=== PATIENT | female | born 1950 | race Caucasian/White ===

== ENCOUNTER 2019-08-28 09:34 | Inpatient (IN) | payer OTHER ==
[2019-08-25 11:30] VITALS: BP_SYST 135
[2019-08-25 11:31] VITALS: BP 135/64
[2019-08-25 11:50] LABS: BASOPHILS % (AUTO) 0.2 % (0.0-5.0); EOSINOPHILS % (AUTO) 0.4 % (0.0-8.0); HEMATOCRIT 39.8 % (36-48); LYMPHOCYTES % (AUTO) 15.2 % (21.0-51.0); MEAN CORPUSCULAR HEMOGLOBIN 29.3 pg (27.0-33.0); MEAN CORPUSCULAR HGB CONC 33.2 g/dL (32.0-36.0); MEAN CORPUSCULAR VOLUME 88.2 fL (79-99); MONOCYTES % (AUTO) 3.2 % (3.0-13.0); PLATELET COUNT (AUTO) 319 K/uL (130-400); RED BLOOD CELL COUNT(AUTO) 4.52 MIL/uL (4.00-5.50); RED CELL DISTRIBUTION WIDTH 13.2 % (11.0-15.5); WHITE BLOOD COUNT (AUTO) 8.8 K/uL (4.8-10.8)
[2019-08-25 11:58] LABS: APPEARANCE,URINE Clear (CLEAR); BILIRUBIN,URINE Negative (NEGATIVE); COLOR,URINE Yellow (YELLOW); GLUCOSE, URINE (UA) Negative (NEGATIVE); KETONES,URINE Negative (NEGATIVE); LEUKOCYTE ESTERASE ,URINE Negative (NEGATIVE); NITRATE,URINE Negative (NEGATIVE); OCCULT BLOOD,URINE Negative (NEGATIVE); PROTEIN,URINE Negative (NEGATIVE); UROBILINOGEN,URINE 0.2 mg/dL (0.2-1.0)
[2019-08-25 12:04] LABS: CREATININE 0.8 mg/dL (0.5-1.5); POTASSIUM 4.2 mmol/L (3.5-5.1)
[2019-08-25 12:26] LABS: INR 0.94 (0.85-1.15); PROTHROMBIN TIME 9.9 SEC (9.6-11.6)
--- NOTE | 2019-08-25 16:36 | NUR ---
EKG ABNORMAL EKG REPORTED TO DR. BOJORQUEZ,NO FURTHER ORDERS GIVEN. OK TO PROCEED WITH SX
[2019-08-28] VITALS (18 sets, daily range): BP systolic 93–138; BP diastolic 44–67
[~2019-08-28] VITALS: Ht 160 cm; Wt 66.0 kg
[~2019-08-28 09:34] MED LIST: ALBU8.5H8 IH; ALBUTEROL NEBULIZER NEB; CLINDAMYCIN 900 MG/D5% WATER 50 ML IV SCH; CLON2TAB11 PO; ESCI10TA54 PO; ESOM40CA54 PO; EZET10TA48 PO; FLUT8AER2 IH; IVER30CR TP; LORA10TA7 PO; LOSA50TA64 PO; METF-444 PO; MONT10TA21 PO; MUPI22O TP; THYR60TA2 PO; [UNRECOGNIZED DRUG - CODE] TP
[2019-08-28] MEDS ORDERED: LACTATED RINGERS 1000ML 0 ML IV ONE (11:17)
[2019-08-28] MEDS ORDERED: SODIUM CHLORIDE 0.9% 1000ML 1,000 ML IV ONE (11:21)
--- NOTE | 2019-08-28 11:51 | NUR ---
PUPIL OCCURRENCE / REACTION: LEFT EYE DOES NOT DILATE. PATIENT STATED WAS MESSED UP DURING CATARACT SURGERY.
[2019-08-28] MEDS ORDERED: METOCLOPRAMIDE 10 MG/2 ML VIAL ONE (12:47)
[2019-08-28] MEDS ORDERED: KETOROLAC TROMETHAMINE 15MG/ML ONE (12:47)
[2019-08-28] MEDS ORDERED: CELECOXIB 200 MG CAP ONE (12:47)
[2019-08-28] MEDS ORDERED: ACETAMINOPHEN EXTRA STRENGTH 500 MG TABLET ONE (12:47)
[2019-08-28] MEDS ORDERED: OXYCODONE HCL 10 MG TAB.SR.12H PO ONE (12:48)
[2019-08-28] MEDS ORDERED: ALBUTEROL SULFATE 0.083% 2.5 MG/3 ML INH IH ONE (13:25)
[2019-08-28] MEDS ORDERED: CLINDAMYCIN PHOSPHATE 150 MG/ML 6ML VIAL ONE (16:14)
[2019-08-28] MEDS ORDERED: DiphenhydrAMINE HCL 50 MG/ML VIAL IVP PRN (16:45)
[2019-08-28] MEDS ORDERED: TRAMADOL HCL 50 MG TABLET PO PRN (16:45)
[2019-08-28] MEDS ORDERED: ONDANSETRON HCL 4 MG/2 ML VIAL IVP PRN (16:45)
--- NOTE | 2019-08-28 17:16 | NUR ---
TRANEXAMIC ACID 1GM IVPB GIVEN IN PACU. Addendum: 08/28/19 at 1720 by GENOVEVA WATERMAN RN RN Amended: Links added.
[2019-08-28] MEDS: SODIUM CHLORIDE 0.9% 1000ML 1,000 ML IV SCH (18:31)
[2019-08-28] MEDS: ACETAMINOPHEN EXTRA STRENGTH 500 MG TABLET PO SCH (18:33)
[2019-08-28] MEDS ORDERED: ALBUTEROL SULFATE 0.083% 2.5 MG/3 ML INH IH PRN ×2 (19:15→19:45)
[2019-08-28] MEDS ORDERED: ALBUTEROL NEBULIZER NEB PRN (19:15)
[2019-08-28] MEDS: BUDESONIDE 0.5 MG/2 ML INH IH SCH (19:44)
[2019-08-28] MEDS: OXYCODONE HCL 5 MG TAB PO PRN (20:08)
[2019-08-28] MEDS: METFORMIN HCL 500 MG TABLET PO SCH (20:08)
[2019-08-28] MEDS: CALCIUM CARBONATE 500 MG TABLET PO SCH (20:08)
[2019-08-28] MEDS: CELECOXIB 200 MG CAP PO SCH (20:08)
[2019-08-28] MEDS: CLONAZEPAM 2 MG TABLET PO SCH (20:09)
[2019-08-28] MEDS: PREGABALIN 25 MG CAP PO SCH (20:09)
[2019-08-28] MEDS: FAMOTIDINE 20MG TAB 20 MG TAB PO SCH (20:09)
[2019-08-28] MEDS: INSULIN HUMULIN R 100 UNIT/ML 3ML SQ SCH (21:00)
[2019-08-28] MEDS ORDERED: ASPIRIN 81MG TAB.CHEW PO SCH (21:00)
[2019-08-28] MEDS: PANTOPRAZOLE SODIUM 40 MG TABLET.DR PO SCH ×2 (21:00→22:57)
[2019-08-28] MEDS: CITALOPRAM 20 MG TABLET PO SCH ×2 (21:00→22:57)
[2019-08-28] MEDS: MUPIROCIN OINTMENT 22 GM TUBE TP SCH (21:00)
[2019-08-28] MEDS: CLINDAMYCIN 900 MG/D5% WATER 50 ML IV SCH (22:56)
[2019-08-29 00:12] VITALS: BP 100/56
[2019-08-29] MEDS: OXYCODONE HCL 5 MG TAB PO PRN ×6 (00:54→20:39)
[2019-08-29] MEDS: ACETAMINOPHEN EXTRA STRENGTH 500 MG TABLET PO SCH ×3 (00:55→18:16)
[2019-08-29] MEDS: SODIUM CHLORIDE 0.9% 1000ML 1,000 ML IV SCH ×2 (03:07→12:32)
[2019-08-29 04:12] VITALS: BP 99/53
--- NOTE | 2019-08-29 04:57 | NUR ---
NO VOID PATIENT UNABLE TO VOID ON HER OWN AND HAS SENSATION THAT SHE NEEDS TO GO. PATIENT WAS THEN BLADDER SCANNED TO SHOW 602ML OF FLUID IN HER BLADDER. PER PROTOCOL PATIENT WAS CATHETERIZED WITH A 16 FR CATHETER AND REMOVED 700 ML OF CLEAR YELLOW URINE.
[2019-08-29] MEDS: CLINDAMYCIN 900 MG/D5% WATER 50 ML IV SCH (05:11)
[2019-08-29] MEDS: INSULIN HUMULIN R 100 UNIT/ML 3ML SQ SCH ×4 (05:30→20:46)
[2019-08-29] MEDS: BUDESONIDE 0.5 MG/2 ML INH IH SCH ×2 (06:21→19:23)
[2019-08-29] MEDS: ALBUTEROL SULFATE 0.083% 2.5 MG/3 ML INH IH SCH ×4 (06:21→23:21)
[2019-08-29 07:52] VITALS: BP 102/53
[2019-08-29] MEDS ORDERED: ASPIRIN 325 MG TABLET PO SCH (08:30)
[2019-08-29] MEDS ORDERED: ASPIRIN 325MG EC TAB 325 MG TABLET.DR PO SCH (08:45)
[2019-08-29] MEDS: CLONAZEPAM 2 MG TABLET PO SCH ×2 (09:00→20:29)
[2019-08-29] MEDS: MUPIROCIN OINTMENT 22 GM TUBE TP SCH ×2 (09:00→20:46)
[2019-08-29] MEDS ORDERED: EZETIMIBE 10 MG TAB PO SCH (09:00)
[2019-08-29] MEDS: LOSARTAN 50 MG TABLET PO SCH (09:00)
[2019-08-29] MEDS: IVERMECTIN TP SCH (09:00)
[2019-08-29] MEDS: FAMOTIDINE 20MG TAB 20 MG TAB PO SCH ×2 (09:06→20:29)
[2019-08-29] MEDS: CELECOXIB 200 MG CAP PO SCH ×2 (09:06→20:29)
[2019-08-29] MEDS: EZETIMIBE 10 MG TAB PO SCH (09:07)
[2019-08-29] MEDS: POLYETHYLENE GLYCOL 3350 17 GM POWD.PACK PO SCH (09:07)
[2019-08-29] MEDS: MONTELUKAST SODIUM 10 MG TAB PO SCH (09:07)
[2019-08-29] MEDS: CALCIUM CARBONATE 500 MG TABLET PO SCH ×2 (09:07→20:28)
[2019-08-29] MEDS: PREGABALIN 25 MG CAP PO SCH ×2 (09:07→20:29)
[2019-08-29] MEDS: LORATADINE 10 MG TABLET PO SCH (09:07)
--- NOTE | 2019-08-29 09:32 | NUR ---
DR. SOSA AWARE OF CT OF THE HEAD RESUTLS "NORMAL STUDY"
--- NOTE | 2019-08-29 10:00 | NUR ---
PT VOIDED 4OO CC
[2019-08-29] MEDS: THYROID PORK 60 MG PO SCH (10:10)
--- NOTE | 2019-08-29 11:00 | NUR ---
DR. SOSA AWARE OF DR. MORRIS'S ORDERS OK TO FOLLOW RECOMMENDATIONS OK FOR ASPIRIN 325 MG PO BID
[2019-08-29 11:24] VITALS: BP 105/49
[2019-08-29] MEDS: KETOROLAC TROMETHAMINE 15MG/ML IV PRN ×2 (15:22→23:51)
[2019-08-29 16:11] VITALS: BP 130/61
--- NOTE | 2019-08-29 17:55 | NUR ---
ADVISED RN THAT PT IS ACCEPTED AT [facility], [facility] STILL STILL PENDING Addendum: 08/29/19 at 1756 by RAUL DE LA VEGA RN CM Amended: Links added.
[2019-08-29 20:09] VITALS: BP 148/62
[2019-08-29] MEDS: METFORMIN HCL 500 MG TABLET PO SCH (20:29)
[2019-08-29] MEDS: ASPIRIN 325MG EC TAB 325 MG TABLET.DR PO SCH (20:29)
[2019-08-29] MEDS: PANTOPRAZOLE SODIUM 40 MG TABLET.DR PO SCH (20:29)
[2019-08-29] MEDS: CITALOPRAM 20 MG TABLET PO SCH (20:29)
[2019-08-30] VITALS (7 sets, daily range): BP systolic 109–160; BP diastolic 50–82
[2019-08-30] MEDS: ACETAMINOPHEN EXTRA STRENGTH 500 MG TABLET PO SCH ×3 (00:45→16:45)
[2019-08-30] MEDS: OXYCODONE HCL 5 MG TAB PO PRN ×2 (01:00→08:08)
[2019-08-30] MEDS: INSULIN HUMULIN R 100 UNIT/ML 3ML SQ SCH ×4 (05:34→20:39)
[2019-08-30] MEDS: THYROID PORK 60 MG PO SCH (05:34)
[2019-08-30] MEDS: ALBUTEROL SULFATE 0.083% 2.5 MG/3 ML INH IH SCH ×4 (06:17→23:08)
[2019-08-30] MEDS: BUDESONIDE 0.5 MG/2 ML INH IH SCH ×2 (06:28→19:16)
--- NOTE | 2019-08-30 07:30 | NUR ---
INITIAL ASSESSMENT I QUESTIONED PATIENT IF NUMBNESS TO HANDS AND BLURRY VISION SYMPTOMS THAT WERE REPORTED YESTERDAY STILL PRESENT TODAY. PATIENT REPLIED "THE NUMB FEELING ON MY HANDS IS GOING AWAY AND I DON'T SEE BLURRY ANY MORE. I CAN SEE THE NUMBERS ON THE CLOCK TODAY. YESTERDAY I COULDN'T SEE THE NUMBERS ON THE CLOCK." I ASKED PATIENT "DO YOU FEEL LIKE YOUR SYMPTOMS ARE BETTER, WORSE, OR THE SAME SINCE THOSE SYMPTOMS STARTED YESTERDAY?" AND PATIENT REPLIED "I LIKE THEY [SYMPTOMS] ARE GETTING BETTER TODAY."
--- NOTE | 2019-08-30 08:15 | NUR ---
DR. IAN GARDNER HERE TO SEE PATIENT. MD ASKED ME TO ONLY LOOSEN PATIENTS PEYMAN WRAP ON RIGHT KNEE. I WENT TO PATIENTS ROOM AND EXPLAINED THAT I WAS GOING TO LOOSEN PEYMAN WRAP PER DR. SOSA REQUEST. AFTER I LOOSENED PEYMAN WRAP AND SECURED AGAIN, I ASKED PATIENT IF THE PEYMAN WRAP FELT LOOSER AND MORE COMFORTABLE AND PATIENT REPLIED "YES." I REAPPLIED SCD'S AFTER.
[2019-08-30] MEDS ORDERED: HYDROMORPHONE PCA 10 MG/50 ML 50 ML IV PRN (09:00)
[2019-08-30] MEDS: MUPIROCIN OINTMENT 22 GM TUBE TP SCH ×2 (09:00→20:34)
[2019-08-30] MEDS: LOSARTAN 50 MG TABLET PO SCH (09:00)
[2019-08-30] MEDS: CLONAZEPAM 2 MG TABLET PO SCH ×2 (09:00→20:34)
[2019-08-30] MEDS: IVERMECTIN TP SCH (09:00)
[2019-08-30] MEDS: MONTELUKAST SODIUM 10 MG TAB PO SCH (11:06)
[2019-08-30] MEDS: CALCIUM CARBONATE 500 MG TABLET PO SCH ×2 (11:06→20:34)
[2019-08-30] MEDS: ASPIRIN 325MG EC TAB 325 MG TABLET.DR PO SCH ×2 (11:06→20:34)
[2019-08-30] MEDS: FAMOTIDINE 20MG TAB 20 MG TAB PO SCH ×2 (11:07→20:34)
[2019-08-30] MEDS: EZETIMIBE 10 MG TAB PO SCH (11:07)
[2019-08-30] MEDS: CELECOXIB 200 MG CAP PO SCH ×2 (11:07→20:34)
[2019-08-30] MEDS: PREGABALIN 25 MG CAP PO SCH ×2 (11:07→20:34)
[2019-08-30] MEDS: LORATADINE 10 MG TABLET PO SCH (11:07)
[2019-08-30] MEDS: POLYETHYLENE GLYCOL 3350 17 GM POWD.PACK PO SCH (11:08)
[2019-08-30] MEDS: PANTOPRAZOLE SODIUM 40 MG TABLET.DR PO SCH (20:34)
[2019-08-30] MEDS: METFORMIN HCL 500 MG TABLET PO SCH (20:34)
[2019-08-30] MEDS: CITALOPRAM 20 MG TABLET PO SCH (20:34)
[2019-08-31] VITALS (8 sets, daily range): BP systolic 100–148; BP diastolic 40–66
[2019-08-31] MEDS: ACETAMINOPHEN EXTRA STRENGTH 500 MG TABLET PO SCH ×3 (01:37→16:51)
[2019-08-31] MEDS: INSULIN HUMULIN R 100 UNIT/ML 3ML SQ SCH ×3 (06:02→16:15)
[2019-08-31] MEDS: ALBUTEROL SULFATE 0.083% 2.5 MG/3 ML INH IH SCH ×3 (06:08→18:00)
[2019-08-31] MEDS: BUDESONIDE 0.5 MG/2 ML INH IH SCH ×2 (06:27→18:00)
[2019-08-31] MEDS: THYROID PORK 60 MG PO SCH (06:30)
--- NOTE | 2019-08-31 07:30 | NUR ---
PATIENT REPORT PATIENT REPORTS BLURRY VISION TO EXPERIENCE IN BOTH EYES AND STATES "I CANT SEE ANY OF THE NUMBERS ON THE CLOCK WALL, THEY ARE ALL BLURRY. I CAN SEE THE SHAPE OF THE CLOCK, BUT NOT THE NUMBERS." I ASKED PATIENT IF NUMBNESS OR TINGLING FELT ON ARMS OR LEGS AND PATIENT REPLIED NO. PATIENT WAS USING HER CELL PHONE SHE WAS REPORTING THIS SYMPTOMS. I ASKED PATIENT "IS YOUR NEAR VISION AFFECTED, I CAN SEE YOUR USING YOUR PHONE." AND PATIENT REPLIED "WHEN I TEXT SOMETIMES I HAVE TROUBLE SEEING." PATIENT WAS TELLING ME THIS, SHE WAS USING CELL PHONE CAMERA TO TAKE PICTURES OF RIGHT KNEE. PATIENT CONTINUED TO SAY '"I FEEL LIKE WHEN I USE MY PHONE I TEND TO FORGET HOW TO USE CERTAIN APPS." MESSI PONCE FOR DR. SOSA WAS ROUNDING AROUND THIS TIME. PATIENT TOLD MESSI PONCE THAT TODAY WAS THE "FIRST TIME" SYMPTOMS OF BLURRY VISION OCCURRED. I CLARIFIED TO PATIENT "I THOUGHT THE SYMPTOMS STARTED THE DAY BEFORE YESTERDAY. THATS WHEN THE SYMPTOMS FIRST STARTED AND DR. SOSA ORDERS A CT HEAD AND DR. MORRIS ORDERED A 2D ECHO AND DOPPLER TEST." AND PATIENT REPLIED "OH YES." Addendum: 08/31/19 at 1010 by THIEN MARSHALL RN RN Amended: Links added.
[2019-08-31] MEDS: IVERMECTIN TP SCH (09:00)
[2019-08-31] MEDS: CLONAZEPAM 2 MG TABLET PO SCH (09:00)
[2019-08-31] MEDS: MUPIROCIN OINTMENT 22 GM TUBE TP SCH (09:00)
[2019-08-31] MEDS: LOSARTAN 50 MG TABLET PO SCH (09:00)
[2019-08-31] MEDS: POLYETHYLENE GLYCOL 3350 17 GM POWD.PACK PO SCH (11:30)
[2019-08-31] MEDS: EZETIMIBE 10 MG TAB PO SCH (11:30)
[2019-08-31] MEDS: MONTELUKAST SODIUM 10 MG TAB PO SCH (11:30)
[2019-08-31] MEDS: CALCIUM CARBONATE 500 MG TABLET PO SCH (11:30)
[2019-08-31] MEDS: LORATADINE 10 MG TABLET PO SCH (11:31)
[2019-08-31] MEDS: PREGABALIN 25 MG CAP PO SCH (11:31)
[2019-08-31] MEDS: CELECOXIB 200 MG CAP PO SCH (11:31)
[2019-08-31] MEDS: ASPIRIN 325MG EC TAB 325 MG TABLET.DR PO SCH (11:32)
[2019-08-31] MEDS: OXYCODONE HCL 5 MG TAB PO PRN (11:40)
[2019-08-31] MEDS: FAMOTIDINE 20MG TAB 20 MG TAB PO SCH (12:21)
--- NOTE | 2019-08-31 13:30 | NUR ---
DISCHARGE ORDERS PENDING FOR DR. SOSA TO ARRIVE TO FLOOR TO BRING PATIENT SCRIPT FOR [facility].
[2019-08-31] MEDS ORDERED: ASPI-891 PO (13:33)
[2019-08-31] MEDS ORDERED: HYDR-4457 PO (13:33)
[2019-08-31] MEDS: KETOROLAC TROMETHAMINE 15MG/ML IV PRN (13:44)
[2019-08-31] MEDS ORDERED: BISACODYL 10 MG SUPP.RECT RC PRN (16:45)
--- NOTE | 2019-08-31 20:31 | NUR ---
DISCHARGE PATIENT GIVEN DISCHARGE INSTRUCTIONS AND EDUCATION, INCLUDING SIDE EFFECTS ON NEW PRESCRIBED MEDICATIONS AND FOLLOW UP APPOINTMENTS. PATIENT VERBALIZED UNDERSTANDING OF ALL EDUCATION GIVEN VIA TEACH BACK. NO QUESTIONS OR CONCERNS VOICED AT THIS TIME. VITALS STABLE. AFEBRILE. NO COMPLAINTS OF PAIN VOICED AT THIS TIME. IV DISCONTINUED, CATHETER INTACT. REPORT GIVEN TO JOSELITO CEJA AT [facility]. PENDING TRANSPORT FOR [facility]. ALL BELONGINGS TAKEN WITH. FAMILY AT BEDSIDE AT THIS TIME. CALL LIGHT WITHIN REACH. WILL CONTINUE TO BE OBSERVED. Addendum: 08/31/19 at 2033 by ALBARO LAUREN RN RN Amended: Links added.
[2019-09-29] MEDS ORDERED: ONDA4TAB9 PO (11:37)
[2019-09-29] MEDS ORDERED: FLUT1AER IH (11:37)
[2019-10-04] MEDS ORDERED: METR500T PO (11:07)
[2019-10-04] MEDS ORDERED: LEVO500T2 PO (11:07)
== END 2019-08-31 20:50 | DRG 470 ==
LOC: DAHIP 09:34 → 4AH 16:43
PROVIDERS: ADMIT Orthopaedic Surgery; ATTEND Orthopaedic Surgery
PROC: 0SRC0J9 Replacement of Right Knee Joint with Synthetic Substitute, Cemented, Open Approach (ICD-10-PCS; principal; 2019-08-28)
PROC: 3E0T3BZ Introduction of Anesthetic Agent into Peripheral Nerves and Plexi, Percutaneous Approach (ICD-10-PCS; 2019-08-28)
DX: M17.11 Unilateral primary osteoarthritis, right knee (principal); G45.9 Transient cerebral ischemic attack, unspecified; E11.9 Type 2 diabetes mellitus without complications; E78.5 Hyperlipidemia, unspecified; I10 Essential (primary) hypertension; H53.2 Diplopia; I25.10 Atherosclerotic heart disease of native coronary artery without angina pectoris; F41.9 Anxiety disorder, unspecified; E03.9 Hypothyroidism, unspecified; G89.29 Other chronic pain; R26.89 Other abnormalities of gait and mobility; M21.061 Valgus deformity, not elsewhere classified, right knee; Z90.710 Acquired absence of both cervix and uterus
CPT/HCPCS: 36415; 70450; 80048; 81003; 82948; 85025; 85610; 87641; 88304; 88311; 93005; 93306; 93880; 94640; 94664; 96374; 96375; 97039; A4344; G0378; J1170; J1815; J1885; J2250; J2405; J2704; J2710; J2765; J2795; J3010; J3490; J7030; J7120

== ENCOUNTER → 2020-08-13 | Outpatient (CLI) | payer OTHER ==
[~2020-08-13] MED LIST changes: +ASPI-891 PO; -CLINDAMYCIN 900 MG/D5% WATER 50 ML IV SCH; +FLUT1AER IH; -FLUT8AER2 IH; +HYDR-4457 PO; -IVER30CR TP; +LEVO500T2 PO; +METR500T PO; +ONDA-104 PO; -[UNRECOGNIZED DRUG - CODE] TP
== END | disposition home or self-care (01) ==
LOC: SHCH 16:01
PROVIDERS: ATTEND Internal Medicine Cardiovascular Disease
DX: I25.10 Atherosclerotic heart disease of native coronary artery without angina pectoris (principal)
CPT/HCPCS: 93880

== ENCOUNTER 2021-08-22 12:00 | Inpatient (IN) | payer MEDICARE ==
[~2021-08-22] VITALS: Ht 157.5 cm; Wt 73.9 kg
[~2021-08-22 12:00] MED LIST changes: +ALBU2.5V2 IH; -ALBUTEROL NEBULIZER NEB; -ASPI-891 PO; +COLE1TAB2 PO; +ESCI-8 PO; -ESCI10TA54 PO; -HYDR-4457 PO; -LEVO500T2 PO; -LORA10TA7 PO; +MESA1.2T3 PO; -METF-444 PO; -METR500T PO; +MIRA50TA PO; +MIRT-72 PO; -MUPI22O TP; -ONDA-104 PO; +ROSU5TAB12 PO; +SOOLANTRA TP
[2021-08-22 14:09] LABS: BASOPHILS % (AUTO) 0.3 % (0.0-5.0); EOSINOPHILS % (AUTO) 0.7 % (0.0-8.0); HEMATOCRIT 36.4 % (36-48); LYMPHOCYTES % (AUTO) 26.4 % (21.0-51.0); MEAN CORPUSCULAR HEMOGLOBIN 27.6 pg (27.0-33.0); MEAN CORPUSCULAR HGB CONC 31.9 g/dL (32.0-36.0); MEAN CORPUSCULAR VOLUME 86.7 fL (79-99); MONOCYTES % (AUTO) 4.1 % (3.0-13.0); NEUTROPHILS % (AUTO) 68.1 % (40.0-77.0); PLATELET COUNT (AUTO) 278 K/uL (130-400); RED CELL DISTRIBUTION WIDTH 12.9 % (11.0-15.5); WHITE BLOOD COUNT (AUTO) 7.4 K/uL (4.8-10.8)
[2021-08-22 14:14] LABS: APPEARANCE,URINE Clear (CLEAR); BILIRUBIN,URINE Negative (NEGATIVE); COLOR,URINE Yellow (YELLOW); GLUCOSE, URINE (UA) Negative (NEGATIVE); KETONES,URINE Negative (NEGATIVE); LEUKOCYTE ESTERASE ,URINE Negative (NEGATIVE); NITRATE,URINE Negative (NEGATIVE); OCCULT BLOOD,URINE Negative (NEGATIVE); PH,URINE 5.5 (5.0-8.0); PROTEIN,URINE Negative (NEGATIVE); UROBILINOGEN,URINE 0.2 mg/dL (0.2-1.0)
[2021-08-22 14:20] LABS: CREATININE 0.8 mg/dL (0.5-1.5); INR 0.98 (0.85-1.15); POTASSIUM 4.2 mmol/L (3.5-5.1); PROTHROMBIN TIME 10.7 SEC (9.6-11.6)
[2021-08-22] MEDS ORDERED: FLUT1AER IH (15:51)
[2021-08-22] MEDS ORDERED: arthritis tylenol PO (15:51)
[2021-08-22] MEDS ORDERED: GLIM1TAB18 PO (15:51)
[2021-08-22] MEDS ORDERED: LOPE2TAB26 PO (15:51)
[2021-08-22] MEDS ORDERED: FLUT8AER2 IH (15:51)
[2021-08-22] MEDS ORDERED: ALBU2.5V2 IH (15:51)
[2021-08-25] VITALS (21 sets, daily range): BP systolic 98–130; BP diastolic 34–65
[2021-08-25] MEDS ORDERED: 0.9%NACL 1000ML 1,000 ML IV ONE (06:54)
[2021-08-25] MEDS ORDERED: CLINDAMYCIN IVPB 900MG/50ML 50 ML IV ONE (06:54)
[2021-08-25] MEDS ORDERED: MIDAZOLAM HCL 1 MG/ML 2ML VIAL ONE (09:55)
[2021-08-25] MEDS ORDERED: FENTANYL CITRATE PF 50 MCG/1 ML 2ML VIAL ONE (09:55)
[2021-08-25] MEDS ORDERED: EPHEDRINE SULFATE 50 MG/ML AMPULE ONE (10:16)
[2021-08-25] MEDS ORDERED: CLINDAMYCIN 900MG/6ML INJ ONE (10:47)
[2021-08-25] MEDS ORDERED: CLINDAMYCIN 900MG/6ML INJ IJ ONE (10:58)
[2021-08-25] MEDS ORDERED: DiphenhydrAMINE HCL 50 MG/ML VIAL IVP PRN (13:30)
[2021-08-25] MEDS: 0.9%NACL 1000ML 1,000 ML IV SCH (13:30)
[2021-08-25] MEDS ORDERED: CALCIUM CARB 500MG PO PRN (13:30)
[2021-08-25] MEDS ORDERED: ONDANSETRON 4MG INJ IVP PRN (13:30)
[2021-08-25] MEDS ORDERED: FE FUMARATE/FA/MV, MIN COMB#15 1 TAB PO PRN (13:30)
[2021-08-25] MEDS ORDERED: KCL 20 MEQ ERTAB PO PRN (13:30)
[2021-08-25] MEDS ORDERED: TRAMADOL HCL 50 MG TABLET PO PRN (13:30)
[2021-08-25] MEDS ORDERED: POTASSIUM CHLORIDE 20MEQ/100ML 100 ML IV PRN (13:30)
[2021-08-25] MEDS ORDERED: POTASSIUM CHLORIDE 10% ELIXIR 20 MEQ/15 ML UDCUP PO PRN (13:30)
[2021-08-25] MEDS: ACETAMINOPHEN 500 MG TABLET PO SCH ×2 (13:30→22:05)
[2021-08-25] MEDS ORDERED: OXYCODONE HCL 5 MG TAB PO PRN (13:30)
[2021-08-25] MEDS ORDERED: LIDOCAINE HCL-MPF 1% 2ML VIAL IV PRN (13:30)
[2021-08-25] MEDS ORDERED: KETOROLAC 15MG/ML VIAL (15MG/ML) IV PRN (13:30)
[2021-08-25] MEDS ORDERED: ALBUTEROL 0.083% 2.5 MG/3 ML INH IH PRN (16:00)
[2021-08-25] MEDS ORDERED: ALBUTEROL 0.083% 2.5 MG/3 ML INH IH SCH (16:00)
[2021-08-25] MEDS: INSULIN HUMULIN R 100 UNIT/ML 3ML SQ SCH ×2 (16:30→22:13)
[2021-08-25] MEDS: CLINDAMYCIN IVPB 900MG/50ML 50 ML IVPB SCH (17:41)
[2021-08-25] MEDS: BUDESONIDE 0.5 MG/2 ML INH IH SCH (18:21)
[2021-08-25] MEDS: CLONAZEPAM 2 MG TABLET PO SCH (21:00)
[2021-08-25] MEDS: GLIMEPIRIDE 2 MG TABLET PO SCH (21:00)
[2021-08-25] MEDS: ATORVASTATIN 10 MG TABLET PO SCH (22:02)
[2021-08-25] MEDS: EZETIMIBE 10 MG TAB PO SCH (22:03)
[2021-08-25] MEDS: MIRTAZAPINE 15 MG TABLET PO SCH (22:03)
[2021-08-25] MEDS: ASPIRIN 81 MG EC TAB PO SCH (22:06)
[2021-08-25] MEDS: CITALOPRAM 20 MG TABLET PO SCH (22:06)
[2021-08-25] MEDS: PREGABALIN 25 MG CAP PO SCH (22:06)
[2021-08-25] MEDS: FLUTICASONE/VILANTEROL 1 EACH AER.POW.BA IH SCH (22:08)
[2021-08-25] MEDS: CELECOXIB 200 MG CAP PO SCH (22:09)
[2021-08-25] MEDS: ALBUTEROL 0.083% 2.5 MG/3 ML INH IH SCH (23:10)
[2021-08-26 00:24] VITALS: BP 131/60
[2021-08-26] MEDS: CLINDAMYCIN IVPB 900MG/50ML 50 ML IVPB SCH (02:51)
[2021-08-26 04:28] VITALS: BP 119/52
[2021-08-26 04:29] LABS: HEMATOCRIT 25.7 % (36-48); MEAN CORPUSCULAR HEMOGLOBIN 27.5 pg (27.0-33.0); MEAN CORPUSCULAR HGB CONC 32.7 g/dL (32.0-36.0); RED BLOOD CELL COUNT(AUTO) 3.06 MIL/uL (4.00-5.50); RED CELL DISTRIBUTION WIDTH 12.8 % (11.0-15.5); WHITE BLOOD COUNT (AUTO) 11.4 K/uL (4.8-10.8)
[2021-08-26 04:57] LABS: CREATININE 0.8 mg/dL (0.5-1.5)
[2021-08-26] MEDS: OXYCODONE HCL 5 MG TAB PO PRN ×4 (05:14→21:59)
[2021-08-26] MEDS: ACETAMINOPHEN 500 MG TABLET PO SCH ×3 (05:15→21:50)
[2021-08-26] MEDS: INSULIN HUMULIN R 100 UNIT/ML 3ML SQ SCH ×4 (06:30→21:00)
[2021-08-26] MEDS: ALBUTEROL 0.083% 2.5 MG/3 ML INH IH SCH ×4 (07:15→23:00)
[2021-08-26] MEDS: BUDESONIDE 0.5 MG/2 ML INH IH SCH ×2 (07:15→18:37)
[2021-08-26 07:30] VITALS: BP 106/40
[2021-08-26] MEDS: POLYETHYLENE GLYCOL 3350 17 GM POWD.PACK PO SCH (09:00)
[2021-08-26] MEDS: CLONAZEPAM 2 MG TABLET PO SCH ×2 (09:00→21:00)
[2021-08-26] MEDS: LOPERAMIDE HCL 2 MG CAP PO SCH (09:00)
[2021-08-26] MEDS: LOSARTAN 100 MG TABLET PO SCH (09:00)
[2021-08-26] MEDS: 0.9%NACL 1000ML 1,000 ML IV SCH (10:18)
[2021-08-26] MEDS: PREGABALIN 25 MG CAP PO SCH ×2 (10:20→21:47)
[2021-08-26] MEDS: CELECOXIB 200 MG CAP PO SCH ×2 (10:21→21:49)
[2021-08-26] MEDS: ASPIRIN 81 MG EC TAB PO SCH ×2 (10:21→21:49)
[2021-08-26] MEDS: MONTELUKAST SODIUM 10 MG TAB PO SCH (10:21)
[2021-08-26] MEDS: FE FUMARATE/FA/MV, MIN COMB#15 1 TAB PO SCH (10:21)
[2021-08-26] MEDS: MESALAMINE 1.2 GM PO SCH (10:26)
[2021-08-26] MEDS: COLESTIPOL HCL 5 GM PO SCH (10:26)
[2021-08-26] MEDS: **HM**(Mirabegron (Myrbetriq) 25 MG PO SCH (10:26)
[2021-08-26] MEDS: THYROID PORK 60 MG PO SCH (10:27)
[2021-08-26] MEDS: SOOLANTRA 1% TP SCH (10:28)
[2021-08-26 11:00] VITALS: BP 121/44
[2021-08-26 15:30] VITALS: BP 115/51
[2021-08-26 20:36] VITALS: BP 112/46
[2021-08-26] MEDS: FLUTICASONE/VILANTEROL 1 EACH AER.POW.BA IH SCH (21:33)
[2021-08-26] MEDS: EZETIMIBE 10 MG TAB PO SCH (21:46)
[2021-08-26] MEDS: MIRTAZAPINE 15 MG TABLET PO SCH (21:46)
[2021-08-26] MEDS: ATORVASTATIN 10 MG TABLET PO SCH (21:47)
[2021-08-26] MEDS: GLIMEPIRIDE 2 MG TABLET PO SCH (21:49)
[2021-08-26] MEDS: CITALOPRAM 20 MG TABLET PO SCH (21:50)
[2021-08-27 00:28] VITALS: BP 100/60
[2021-08-27 03:59] VITALS: BP 132/62
[2021-08-27] MEDS: ACETAMINOPHEN 500 MG TABLET PO SCH ×3 (05:51→21:04)
[2021-08-27] MEDS: INSULIN HUMULIN R 100 UNIT/ML 3ML SQ SCH ×4 (05:56→21:00)
[2021-08-27] MEDS: BUDESONIDE 0.5 MG/2 ML INH IH SCH ×2 (06:14→18:38)
[2021-08-27] MEDS: ALBUTEROL 0.083% 2.5 MG/3 ML INH IH SCH ×4 (06:14→23:03)
[2021-08-27 08:07] VITALS: BP 111/58
[2021-08-27] MEDS: CLONAZEPAM 2 MG TABLET PO SCH ×2 (09:00→21:00)
[2021-08-27] MEDS: COLESTIPOL HCL 5 GM PO SCH (09:00)
[2021-08-27] MEDS: MESALAMINE 1.2 GM PO SCH (09:00)
[2021-08-27] MEDS: SOOLANTRA 1% TP SCH (09:00)
[2021-08-27] MEDS: **HM**(Mirabegron (Myrbetriq) 25 MG PO SCH (09:00)
[2021-08-27] MEDS: THYROID PORK 60 MG PO SCH (09:00)
[2021-08-27] MEDS: PREGABALIN 25 MG CAP PO SCH (09:00)
[2021-08-27] MEDS: LOPERAMIDE HCL 2 MG CAP PO SCH (09:00)
[2021-08-27] MEDS: CELECOXIB 200 MG CAP PO SCH ×2 (09:29→21:05)
[2021-08-27] MEDS: ASPIRIN 81 MG EC TAB PO SCH ×2 (09:29→21:04)
[2021-08-27] MEDS: FE FUMARATE/FA/MV, MIN COMB#15 1 TAB PO SCH (09:29)
[2021-08-27] MEDS: LOSARTAN 100 MG TABLET PO SCH (09:31)
[2021-08-27] MEDS: POLYETHYLENE GLYCOL 3350 17 GM POWD.PACK PO SCH (09:31)
[2021-08-27] MEDS: MONTELUKAST SODIUM 10 MG TAB PO SCH (09:31)
[2021-08-27 11:50] VITALS: BP 159/72
[2021-08-27 16:41] VITALS: BP 114/78
[2021-08-27 19:00] VITALS: BP 139/51
[2021-08-27] MEDS: FLUTICASONE/VILANTEROL 1 EACH AER.POW.BA IH SCH ×2 (21:00→21:20)
[2021-08-27] MEDS: CITALOPRAM 20 MG TABLET PO SCH (21:04)
[2021-08-27] MEDS: EZETIMIBE 10 MG TAB PO SCH (21:04)
[2021-08-27] MEDS: ATORVASTATIN 10 MG TABLET PO SCH (21:04)
[2021-08-27] MEDS: MIRTAZAPINE 15 MG TABLET PO SCH (21:04)
[2021-08-27] MEDS: GLIMEPIRIDE 2 MG TABLET PO SCH (21:04)
[2021-08-28] VITALS: BP 139/54
[2021-08-28 04:00] VITALS: BP 158/75
[2021-08-28] MEDS: ACETAMINOPHEN 500 MG TABLET PO SCH ×2 (05:43→13:30)
[2021-08-28] MEDS: INSULIN HUMULIN R 100 UNIT/ML 3ML SQ SCH ×2 (06:18→11:30)
[2021-08-28] MEDS: ALBUTEROL 0.083% 2.5 MG/3 ML INH IH SCH ×2 (06:43→11:15)
[2021-08-28] MEDS: BUDESONIDE 0.5 MG/2 ML INH IH SCH (06:43)
[2021-08-28 07:30] VITALS: BP 144/75
[2021-08-28] MEDS: POLYETHYLENE GLYCOL 3350 17 GM POWD.PACK PO SCH (08:27)
[2021-08-28] MEDS: CELECOXIB 200 MG CAP PO SCH (08:29)
[2021-08-28] MEDS: MONTELUKAST SODIUM 10 MG TAB PO SCH (08:29)
[2021-08-28] MEDS: ASPIRIN 81 MG EC TAB PO SCH (08:29)
[2021-08-28] MEDS: FE FUMARATE/FA/MV, MIN COMB#15 1 TAB PO SCH (08:30)
[2021-08-28] MEDS: LOSARTAN 100 MG TABLET PO SCH (08:30)
[2021-08-28] MEDS: THYROID PORK 60 MG PO SCH (09:00)
[2021-08-28] MEDS: MESALAMINE 1.2 GM PO SCH (09:00)
[2021-08-28] MEDS: COLESTIPOL HCL 5 GM PO SCH (09:00)
[2021-08-28] MEDS: LOPERAMIDE HCL 2 MG CAP PO SCH (09:00)
[2021-08-28] MEDS: CLONAZEPAM 2 MG TABLET PO SCH (09:00)
[2021-08-28] MEDS: SOOLANTRA 1% TP SCH (09:00)
[2021-08-28] MEDS: **HM**(Mirabegron (Myrbetriq) 25 MG PO SCH (09:00)
[2021-08-28] MEDS ORDERED: HYDR-4060 PO (09:36)
[2021-08-28 11:00] VITALS: BP 150/72
[2021-08-28] MEDS: OXYCODONE HCL 5 MG TAB PO PRN (11:46)
[2021-08-28] MEDS ORDERED: BISACODYL 10 MG SUPP.RECT RC PRN (13:30)
== END 2021-08-28 15:51 | disposition home health service (06) | DRG 483 ==
LOC: DAHIP 08-25 06:42 → 4BH 08-25 15:22
PROVIDERS: ADMIT Orthopaedic Surgery; ATTEND Orthopaedic Surgery
PROC: 3E0T33Z Introduction of Anti-inflammatory into Peripheral Nerves and Plexi, Percutaneous Approach (ICD-10-PCS; 2021-08-25)
PROC: 0RRJ00Z Replacement of Right Shoulder Joint with Reverse Ball and Socket Synthetic Substitute, Open Approach (ICD-10-PCS; principal; 2021-08-25 10:12)
PROC: 3E0T3BZ Introduction of Anesthetic Agent into Peripheral Nerves and Plexi, Percutaneous Approach (ICD-10-PCS; 2021-08-25 10:12)
DX: M75.101 Unspecified rotator cuff tear or rupture of right shoulder, not specified as traumatic (principal); E87.1 Hypo-osmolality and hyponatremia; Z20.822 Contact with and (suspected) exposure to COVID-19; I10 Essential (primary) hypertension; E11.9 Type 2 diabetes mellitus without complications; E78.5 Hyperlipidemia, unspecified; D64.9 Anemia, unspecified; E03.9 Hypothyroidism, unspecified; Z96.653 Presence of artificial knee joint, bilateral; G89.29 Other chronic pain; M12.811 Other specific arthropathies, not elsewhere classified, right shoulder; Z90.49 Acquired absence of other specified parts of digestive tract; Z88.5 Allergy status to narcotic agent; Z88.0 Allergy status to penicillin; Z88.7 Allergy status to serum and vaccine; Z88.8 Allergy status to other drugs, medicaments and biological substances; Z86.73 Personal history of transient ischemic attack (TIA), and cerebral infarction without residual deficits; E83.51 Hypocalcemia
CPT/HCPCS: 36415; 73020; 80048; 81003; 82948; 85025; 85027; 85610; 87088; 87635; 87641; 88305; 88311; 94640; 94664; 97039; A4565; C1776; G0378; J1815; J2250; J3010; J3490; J7030

== ENCOUNTER → 2021-11-18 | Outpatient (CLI) | payer MEDICARE ==
[~2021-11-18] MED LIST changes: +FLUT8AER2 IH; +GLIM1TAB18 PO; +HYDR-4060 PO; +LOPE2TAB26 PO; +arthritis tylenol PO
== END | disposition home or self-care (01) ==
LOC: SHCH 14:16
PROVIDERS: ATTEND Internal Medicine Cardiovascular Disease
DX: I65.23 Occlusion and stenosis of bilateral carotid arteries (principal)
CPT/HCPCS: 93880

== ENCOUNTER 2022-04-17 14:31 | Emergency (ER) | payer MEDICARE ==
[~2022-04-17] VITALS: Ht 157.5 cm; Wt 73.0 kg
[2022-04-17 15:05] LABS: BASOPHILS % (AUTO) 0.3 % (0.0-5.0); EOSINOPHILS % (AUTO) 1.8 % (0.0-8.0); HEMATOCRIT 40.2 % (36-48); LYMPHOCYTES % (AUTO) 24.8 % (21.0-51.0); MEAN CORPUSCULAR HEMOGLOBIN 28.1 pg (27.0-33.0); MEAN CORPUSCULAR HGB CONC 31.3 g/dL (32.0-36.0); MEAN CORPUSCULAR VOLUME 89.7 fL (79-99); MONOCYTES % (AUTO) 6.3 % (3.0-13.0); NEUTROPHILS % (AUTO) 66.3 % (40.0-77.0); PLATELET COUNT (AUTO) 198 K/uL (130-400); RED BLOOD CELL COUNT(AUTO) 4.48 MIL/uL (4.00-5.50); RED CELL DISTRIBUTION WIDTH 12.5 % (11.0-15.5); WHITE BLOOD COUNT (AUTO) 6.1 K/uL (4.8-10.8)
[2022-04-17] MEDS ORDERED: EZET10TA48 PO (15:12)
[2022-04-17] MEDS ORDERED: ROSU5TAB12 PO (15:12)
[2022-04-17] MEDS ORDERED: ESCI-8 PO (15:12)
[2022-04-17] MEDS ORDERED: LOSA100T58 PO (15:12)
[2022-04-17] MEDS ORDERED: LORA10TA57 PO (15:12)
[2022-04-17] MEDS ORDERED: HALO5TAB2 PO (15:12)
[2022-04-17] MEDS ORDERED: GLIM1TAB18 PO (15:12)
[2022-04-17] MEDS ORDERED: THYR60TA2 PO (15:12)
[2022-04-17] MEDS ORDERED: MESA1.2T3 PO (15:12)
[2022-04-17] MEDS ORDERED: AUD IH (15:12)
[2022-04-17] MEDS ORDERED: CLON2TAB11 PO (15:12)
[2022-04-17] MEDS ORDERED: MONT10TA21 PO (15:12)
[2022-04-17] MEDS ORDERED: ESOM40CA54 PO (15:12)
[2022-04-17 15:18] LABS: CREATININE 0.7 mg/dL (0.5-1.5); POTASSIUM 3.8 mmol/L (3.5-5.1)
[2022-04-17 15:19] LABS: INR 0.93 (0.85-1.15); PROTHROMBIN TIME 10.2 SEC (9.6-11.6)
[2022-04-17 15:20] LABS: PARTIAL THROMBOPLASTIN TIME 28.5 SEC (26.3-35.5)
[2022-04-17 15:27] LABS: ALBUMIN 3.7 g/dL (3.5-5.0); BILIRUBIN,TOTAL 0.5 mg/dL (0.2-1.0); TOTAL PROTEIN, SERUM 7.4 g/dL (6.0-8.3)
[2022-04-17 17:03] LABS: APPEARANCE,URINE Clear (CLEAR); BILIRUBIN,URINE Negative (NEGATIVE); COLOR,URINE Yellow (YELLOW); GLUCOSE, URINE (UA) Negative (NEGATIVE); KETONES,URINE Negative (NEGATIVE); LEUKOCYTE ESTERASE ,URINE Trace (NEGATIVE); NITRATE,URINE Negative (NEGATIVE); OCCULT BLOOD,URINE Negative (NEGATIVE); PH,URINE 5.5 (5.0-8.0); PROTEIN,URINE Negative (NEGATIVE); UROBILINOGEN,URINE 0.2 mg/dL (0.2-1.0)
[2022-04-17 17:13] LABS: BACTERIA,URINE Rare /HPF (None Seen); RBC,URINE 0-1 /HPF (0-1); SQUAMOUS EPITHELIAL CELL,UR Few /HPF (0-2)
[2022-04-17 18:24] VITALS: BP 156/89
== END 2022-04-17 18:47 | disposition home or self-care (01) ==
LOC: EDH 14:31
DX: R26.9 Unspecified abnormalities of gait and mobility (principal); E11.9 Type 2 diabetes mellitus without complications; E78.00 Pure hypercholesterolemia, unspecified; I11.9 Hypertensive heart disease without heart failure; J44.9 Chronic obstructive pulmonary disease, unspecified; Z88.0 Allergy status to penicillin; Z88.5 Allergy status to narcotic agent; Z79.51 Long term (current) use of inhaled steroids; Z79.899 Other long term (current) drug therapy; Z86.73 Personal history of transient ischemic attack (TIA), and cerebral infarction without residual deficits; Z90.49 Acquired absence of other specified parts of digestive tract
CPT/HCPCS: 36415; 70450; 70551; 71045; 80053; 81001; 84484; 85025; 85610; 85730; 93005